=== PATIENT | male | born 1960 | race Two or more races ===

== ENCOUNTER 2018-11-15 07:04 | Day surgery (SDC) | payer BC ==
[2018-11-15] VITALS (14 sets, daily range): BP systolic 117–172; BP diastolic 72–97; PULSE 59–90; RESP 13–30; Ht 165.1 cm; Wt 90.4 kg
[~2018-11-15] VITALS: Ht 165.1 cm; Wt 90.4 kg
[2018-11-15] MEDS ORDERED: CLOP75TA27 PO (08:18)
[2018-11-15] MEDS ORDERED: METF850T13 PO (08:18)
[2018-11-15] MEDS ORDERED: GLIM2TAB PO (08:18)
[2018-11-15] MEDS ORDERED: LEVO75TA65 PO (08:19)
[2018-11-15] MEDS ORDERED: INSU300I SQ (08:19)
[2018-11-15] MEDS ORDERED: VALS160T20 PO (08:20)
[2018-11-15] MEDS ORDERED: IODIXANOL LOCM 100 ML BTL ONE ×2 (10:17→11:11)
[2018-11-15] MEDS ORDERED: LIDOCAINE 1% (MDV) 20 ML INJ ONE (10:17)
[2018-11-15] MEDS ORDERED: FENTAnyl 50 MCG/ML VIAL ONE (10:17)
[2018-11-15] MEDS ORDERED: MIDAZOLAM 1 MG/ML 2 ML INJ ONE (10:17)
[2018-11-15] MEDS ORDERED: SOD CHLORIDE 0.9% 1,000 ML IV SCH (11:46)
[2018-11-15] MEDS ORDERED: HOLD all METFORMIN and METFORMIN CONTAINING medications for 48 hours post procedure. Chec XX SCH (12:00)
[2018-11-15] MEDS ORDERED: ACETAMINOPHEN 325 MG TAB PO PRN (12:00)
== END 2018-11-15 14:11 | disposition home or self-care (01) ==
LOC: EDSEX 07:04 → SDS 07:04
PROVIDERS: ATTEND Internal Medicine Interventional Cardiology
DX: I25.10 Atherosclerotic heart disease of native coronary artery without angina pectoris (principal); E11.9 Type 2 diabetes mellitus without complications
CPT/HCPCS: 71045; 80053; 80061; 82962; 84439; 84443; 85025; 85610; 85730; 93458; 93571; C1887; C1894; J1644; J2250; J3010; Q9967